=== PATIENT | female | born 1985 | race Caucasian/White ===

== ENCOUNTER 2024-12-09 15:30 | Emergency (ER) | payer MEDICAID ==
[~2024-12-09] VITALS: Ht 165.1 cm; Wt 90.0 kg
[2024-12-09 15:32] VITALS: O2SAT 98
[2024-12-09 16:22] LABS: BASOPHILS % 1.1 % (0.0-2.0); EOSINOPHILS % 2.1 % (0.0-5.0); HEMATOCRIT. 38.6 % (36.0-48.0); HEMOGLOBIN. 13.3 g/dL (12.0-16.0); LYMPHOCYTES % 15.9 % (20.0-50.0); MEAN PLATELET VOLUME 7.9 fl (7.4-10.4); MONOCYTES % 8.9 % (2.0-8.0); NEUTROPHILS % 72.0 % (40.0-76.0); PLATELET 255 x1000/uL (130-400); RED BLOOD CELL COUNT 4.27 mill/uL (4.2-5.4); RED CELL DISTRIBUTION WIDTH 13.8 % (11.6-14.6)
[2024-12-09 16:36] LABS: CREATININE 0.9 mg/dL (0.6-1.0); ETHANOL BLOOD < 10 mg/dL (<10); UREA NITROGEN BLOOD 15 mg/dL (9-23)
[2024-12-09 16:37] LABS: ASPARTATE AMINOTRANSFERASE 23 IU/L (<34); HCG SCREEN NEGATIVE
[2024-12-09 16:38] LABS: BILIRUBIN DIRECT 0.1 mg/dL (<=3.0); BILIRUBIN TOTAL 0.4 mg/dL (0.1-1.0); PROTEIN TOTAL 6.9 g/dL (6.0-8.3)
[2024-12-09 17:50] LABS: *AMPHETAMINES SCREEN URINE NEGATIVE (NEGATIVE); *BARBITURATES SCREEN URINE NEGATIVE (NEGATIVE)
[2024-12-09 17:51] LABS: *BENZODIAZEPINES SCREEN URINE NEGATIVE (NEGATIVE); *COCAINE SCREEN URINE NEGATIVE (NEGATIVE); CANNABINOID URINE SCREEN NEGATIVE (NEGATIVE); ECSTASY MDMA SCREEN URINE NEGATIVE (NEGATIVE); METHADONE URINE SCREEN NEGATIVE (NEGATIVE); OPIATES URINE SCREEN NEGATIVE (NEGATIVE); PHENCYCLIDINE URINE SCREEN NEGATIVE (NEGATIVE)
[2024-12-09] MEDS ORDERED: DIPHENHYDRAMINE 50MG CAPSULE PO ONE (19:45)
[2024-12-09] MEDS: LORAZEPAM 1MG TABLET PO ONE (20:08)
[2024-12-09] MEDS: DIPHENHYDRAMINE 25MG CAPSULE PO SCH (20:08)
[2024-12-10 08:27] LABS: CLARITY URINE CLEAR (CLEAR); COLOR URINE YELLOW (YELLOW); GLUCOSE URINE NEGATIVE (NEGATIVE); KETONES URINE NEGATIVE (NEGATIVE); LEUKOCYTE ESTERASE URINE NEGATIVE (NEGATIVE); NITRITE URINE NEGATIVE (NEGATIVE); OCCULT BLOOD URINE NEGATIVE (NEGATIVE); PH URINE >=9.0 (4.5-8.0); PROTEIN URINE NEGATIVE (NEGATIVE); SPECIFIC GRAVITY URINE 1.015 (1.005-1.030); UROBILINOGEN URINE 0.2 E.U./dL (0.2-1.0)
[2024-12-10] MEDS ORDERED: LAMOTRIGINE 25MG TABLET PO SCH (09:00)
[2024-12-10] MEDS: CIPROFLOXACIN 0.3% OPHTH SOLN 2.5ML LEFT EAR SCH (10:25)
[2024-12-10] MEDS ORDERED: HYDROXYZINE 25MG TABLET PO PRN (11:45)
[2024-12-10] MEDS: LAMOTRIGINE 25MG TABLET PO SCH (12:42)
[2024-12-10 21:45] VITALS: BP 110/68; PULSE 72; RESP 14; TEMP 36.7; O2SAT 98
== END 2024-12-10 22:01 ==
LOC: ER 15:30
DX: T16.2XXA Foreign body in left ear, initial encounter (principal); F22 Delusional disorders; F31.9 Bipolar disorder, unspecified; F41.9 Anxiety disorder, unspecified; Z79.899 Other long term (current) drug therapy; X58.XXXA Exposure to other specified factors, initial encounter; Y93.89 Activity, other specified; Y92.89 Other specified places as the place of occurrence of the external cause; Y99.8 Other external cause status
CPT/HCPCS: 80076; 80305; 80048; 80307; 80329; 80320; 84703; 83735; 85025; 36415; 93005; 69200; 99285; 81003; Q0163; G0480